=== PATIENT | female | born 1965 | race Caucasian/White ===

== ENCOUNTER 2021-03-02 07:25 | Emergency (ER) | payer OTHER ==
[~2021-03-02] VITALS: Ht 167.6 cm; Wt 74.1 kg
[2021-03-02 07:27] VITALS: BP 125/74
[2021-03-02] MEDS ORDERED: KETOROLAC 30 MG/1 ML ONE (07:44)
--- NOTE | 2021-03-02 07:54 | NUR ---
Patient given discharge instructions and they have confirmed that they understand the instructions. Patient ambulatory with steady gait.
[2021-03-02] MEDS ORDERED: KETOROLAC 30 MG/1 ML IM ONE (08:00)
== END 2021-03-02 07:55 | disposition home or self-care (01) ==
LOC: ED 07:49
DX: K08.89 Other specified disorders of teeth and supporting structures (principal)
CPT/HCPCS: 96372; 99283; J1885